=== PATIENT | male | born 1965 | race Caucasian/White ===

== ENCOUNTER 2016-09-22 09:18 | Observation (INO) | payer MEDICARE ==
--- NOTE | ~2016-09-22 | HP ---
History And Physical [address]. [address] NAME: AUDREY MENCHACA JR : 69 STATUS : ADM Alissa PAT#: [id number] AGE: 51 ADM/REG DATE : 09/22/16 MR#: [id number] REPORT SERV DATE: 09/22/16 DICTATED BY: GABBY AMADOR DATE: 09/22/16 REPORT STATUS : Draft TRANSCRIBED BY: MODParveen DATE: 09/22/16 DATE OF ADMISSION: 09/22/2016 PRIMARY CARE PROVIDER: [facility]. INSPECTOR AND CLIPPER: None. CHIEF COMPLAINT: Atypical chest pain and left shoulder pain, aggravated with movement. HISTORY OF PRESENT ILLNESS: This is a pleasant 51-year-old white gentleman with known history of CAD, status post CABG [place] [address] Boswell with DE LEON to LAD and DANGELO to RCA, vein graft to ramus, vein graft to OM1, and vein graft to OM2 performed at [facility] with identified occluded vein grafts, 09/14, in June [address] Humphries revealing patent DANGELO to RCA with moderate PLB stenosis after the anastomosis and patent DE LEON to LAD with possible moderate to severe distal circumflex PLB stenosis at that time. The patient also reports that he has multiple stents placed in 2004 and has a history of heart attacks x3. The patient states that he was up this morning doing his usual morning routine, and around 0500 hours, he had a "bad chest pain." He reports left shoulder and left neck discomfort and indicates left upper chest near his shoulder joint. He states the pain was rated an 8/10. At the time of interview in the [facility], he rates it as "pretty bad." He reports the nitroglycerin did not help his symptoms. He took nothing prior to coming to the hospital. He was brought here by his girlfriend. He reports no change in activity. The pain is not reproducible on exam across his anterior chest, but the left arm ache is painful when he raises his left arm above his head, and he seemingly has full range of motion of that extremity. Previous hospitalizations have included left shoulder discomfort as well. The patient reports a personal history of myocardial infarctions x3. Denies history of stroke, DVT, or pulmonary embolus. The patient denies any recent fever or chills. No palpitations. No syncopal episodes. Denies PND or orthopnea. Of note, during the interview, specific to his left shoulder and chest pain, the patient asks repeatedly for pain medication when his blood pressure gets higher. This clinician has offered him Tylenol or Percocet for his left shoulder discomfort which he seems to be amenable to take. PAST MEDICAL HISTORY: 1. CAD. a. Reports MS x3. b. Multiple stents in 2004. c. CABG x5 in 2006. d. June 2015, catheterization by Dr. Humphries, / vein grafts occluded. Patent DANGELO to RCA with moderate PLB stenosis after anastomosis. Patent DE LEON to LAD with possible moderate to severe distal circumflex PLB stenosis. 2. Hypertension. 3. Dyslipidemia. 4. Positive family history for early CAD. 5. Ongoing tobacco use. History And Physical [address] [address] NAME: AUDREY MENCHACA JR : 69 STATUS : ADM Alissa PAT#: [id number] AGE: 51 ADM/REG DATE : 09/22/16 MR#: [id number] REPORT SERV DATE: 09/22/16 DICTATED BY: GABBY AMADOR DATE: 09/22/16 REPORT STATUS : Draft TRANSCRIBED BY: ESPINOZA DATE: 09/22/16 6. History of nephrolithiasis. 7. Anxiety. 8. Depression. 9. "Kidney surgery for blockage.". SURGICAL HISTORY: 1. CABG x5 in [address] [facility] with [address]. Boswell. 2. Right ankle surgery. 3. Kidney surgery to repair a blockage in 1989. SOCIAL HISTORY: He is single. He is unemployed. Does not exercise. He smokes approximately half pack per day and has smoked for the past 30 plus years. He occasionally consumes alcohol. Denies illicits. FAMILY HISTORY: Father with bypass in his 50s with a subsequent stroke and DVT, at the age of 72. Mother's medical history is unknown. REVIEW OF SYSTEMS: A 14-point review of systems performed, significant for HPI including two cups of coffee and two to three sodas per day. Otherwise, complete review of systems was obtained and negative. ALLERGIES: PER THE PATIENT'S VERBAL REPORT, NO KNOWN DRUG ALLERGIES. HOME MEDICATIONS: Aspirin 81 mg daily, Lipitor unknown dose daily, Imdur unknown dose daily, Plavix discontinued approximately one year ago, and Coreg 6.25 mg b.i.d. PHYSICAL EXAMINATION: VITAL SIGNS: Bilateral blood pressures on arrival, right 119/61 and left 105/57; pulse 63; respirations 16; temperature 97.8; and O2 saturation 96% on 2 liters. Height 6 feet 2 inches and weight 245 pounds. GENERAL: Cooperative, in no apparent distress. HEENT: Pupils 2 mm, sclera nonicteric. Nares patent. Moist mucous membranes. No xanthelasma. NECK: Trachea midline, no thyromegaly. No JVD. No bruits. LYMPH: No cervical lymphadenopathy. No supraclavicular lymphadenopathy. RESPIRATORY: Unlabored respirations. Breath sounds clear bilaterally to posterior auscultation. No wheezes or rhonchi. CARDIOVASCULAR: Regular rate. No murmur, rub or gallop appreciated. Extremities without edema. Pulses 2+ bilaterally. ABDOMEN: Soft, nontender, nondistended, normal bowel sounds auscultated throughout. No organomegaly. EXTREMITIES: Left shoulder pain aggravated with movement. The patient has full range of motion of that extremity. SKIN: Warm, dry extremities. No pallor, or cyanosis. PSYCHIATRIC: Appropriate affect. Alert, oriented x3. LABORATORY DATA: Troponin less than 0.02 twice. Potassium 4.1, BUN 9, creatinine 0.88, History And Physical [address] [address] NAME: AUDREY MENCHACA JR : 69 STATUS : ADM Alissa PAT#: [id number] AGE: 51 ADM/REG DATE : 09/22/16 MR#: [id number] REPORT SERV DATE: 09/22/16 DICTATED BY: GABBY AMAODR DATE: 09/22/16 REPORT STATUS : Draft TRANSCRIBED BY: MODL DATE: 09/22/16 glucose 91, and magnesium 2.3. WBC 7.9, hemoglobin 14.7, hematocrit 42.6, and platelet count 151,000. EKG: Sinus rhythm. Nonspecific ST waves, question prolonged QT. MPI in June 2015: Anterior infarct with anterolateral davis-infarct ischemia. EF 50%. Cath in June 2015 (Dr. Humphries): 3/3 vein grafts occluded. Patent DANGELO to RCA with moderate PLB stenosis after anastomosis. Patent DE LEON to LAD. Possible moderate to severe distal circumflex PLB stenosis. ASSESSMENT AND PLAN: 1. Atypical chest pain with complaints of left shoulder pain which has been chronic on previous admissions. The patient has not eaten or consumed any caffeinated beverages today. We will proceed with MPI today. The patient will be discharged home if low risk, no ischemia. Case Management to facilitate PCP for followup. 2. Coronary artery disease. Continue home medications. We will provide script for Lipitor 40 daily, Imdur 60 daily, and Coreg 6.25 mg twice daily which are his last known or identified current medications. 3. No PCP. Case Management to assist. The patient reports that he now has Medicare A and B. it would be beneficial for the patient to have a PCP for routine followup. VALENTINE/[place]PINO[place] MARI Ron, [employer] / [id number] CC: MARI Ron, [employer]
[2016-09-22 07:39] LABS: BASOPHILS 0.1 %; BASOPHILS ABSOLUTE 0.01 10/3/uL (0.0-0.16); EOSINOPHILS ABSOLUTE 0.08 10/3/uL (0.0-0.53); ER CBC TAT 0 Hrs 11 Mins; HEMATOCRIT 42.6 % (40.0-51.0); HEMOGLOBIN 14.7 g/dL (13.6-17.8); IMMATURE GRANULOCYTES 0.1 %; IMMATURE GRANULOCYTES ABSOLUTE 0.01 10/3/uL (0.0-0.11); LYMPHOCYTES 41.5 %; LYMPHOCYTES ABSOLUTE 3.28 10/3/uL (0.67-4.30); MEAN CORPUS HGB CONC 34.5 g/dL (32.0-36.0); MEAN CORPUSCULAR HEMOGLOB 31.3 pg (26.0-34.0); MEAN CORPUSCULAR VOLUME 90.6 fL (80-100); MONOCYTES 5.6 %; MONOCYTES ABSOLUTE 0.44 10/3/uL (0.21-1.20); NEUTROPHILS 51.7 %; NEUTROPHILS ABSOLUTE 4.09 10/3/uL (2.02-8.40); PLATELET COUNT 151 10/3/uL (150-400); RBC DISTRIBUTION WIDTH 12.9 % (12.0-16.0); WHITE BLOOD CELLS 7.9 10/3/uL (4.5-10.5)
[2016-09-22 07:41] LABS: MANUAL DIFF NO %
[2016-09-22 07:47] LABS: INTERNATIONAL NORMAL RATI 1.1 UNITS (-); PARTIAL THROMBO TIME 28.7 SEC (22.5-37.2); PROTIME (NOT ORD) 14.3 SEC (12.0-14.5)
[2016-09-22 07:53] LABS: CALCIUM, SERUM 8.3 MG/DL (8.5-10.4); CHEST PAIN PROFILE TAT 0 Hrs 25 Mins; CHLORIDE, SERUM 107 MMOL/L (96-112); CO2 (CARBON DIOXIDE) 26 MMOL/L (24-34); CREATININE 0.88 MG/DL (0.70-1.30); GFR AFRICAN AMERICAN 117 ML/MIN (>=60); GFR NON AFRICAN AMERICAN 101 ML/MIN (>=60); GLUCOSE, SERUM 91 MG/DL (60-99); SODIUM, SERUM 140 MMOL/L (135-148); TROPONIN I <0.02 NG/ML (<0.05)
[2016-09-22 07:54] LABS: BUN (BLOOD UREA NITROGEN) 9 MG/DL (6-23); POTASSIUM, SERUM 4.1 MMOL/L (3.5-5.3)
[~2016-09-22 09:18] MED LIST: ASA5GR PO; ASAB PO; ASABAYER PO; COREG3 PO; COREG6 PO; DEPAKOT250 PO; IMDUR PO; IMDUR30 PO; IMDUR60 PO; LIPITOR PO; LIPITOR20 PO; LIPITOR40 PO; NTG150 SL; PLAVIX PO; UNABLE TO COMPLETE
[2016-09-22] MEDS ORDERED: COREG6 PO (09:20)
[2016-09-22] MEDS ORDERED: ASAB PO (09:22)
[2016-09-22] MEDS ORDERED: NITROSTAT0.4 MG SL (09:22)
[2016-09-22] MEDS ORDERED: TUMSROLL PO (09:23)
[2016-09-22] MEDS ORDERED: IMDUR PO (09:37)
[2016-09-22] MEDS ORDERED: LIPITOR PO (09:38)
[2016-09-22] MEDS ORDERED: IMDUR60 PO (14:12)
[2016-09-22] MEDS ORDERED: LIPITOR40 PO (14:13)
[2017-01-21] MEDS ORDERED: PRIN2.5 PO (12:50)
== END 2016-09-22 16:14 | disposition home or self-care (01) ==
LOC: ER 09:18 → CDU1 09:25 → CDU2 09:38
PROVIDERS: Emergency Medicine
DX: R07.89 Other chest pain (principal); M25.512 Pain in left shoulder; I25.10 Atherosclerotic heart disease of native coronary artery without angina pectoris; I10 Essential (primary) hypertension; E78.5 Hyperlipidemia, unspecified; F41.9 Anxiety disorder, unspecified; F32.9 Major depressive disorder, single episode, unspecified; F17.210 Nicotine dependence, cigarettes, uncomplicated; I25.2 Old myocardial infarction; E78.00 Pure hypercholesterolemia, unspecified; K21.9 Gastro-esophageal reflux disease without esophagitis; Z82.49 Family history of ischemic heart disease and other diseases of the circulatory system; Z87.442 Personal history of urinary calculi; Z98.890 Other specified postprocedural states; Z95.1 Presence of aortocoronary bypass graft; Z79.82 Long term (current) use of aspirin; Z79.899 Other long term (current) drug therapy
CPT/HCPCS: 71020; 78452; 80048; 83735; 84484; 85025; 85610; 85730; 93005; 93017; 99285; A9270-GY; A9502; G0378; J0153